=== PATIENT | female | born 1985 | race Caucasian/White ===

== ENCOUNTER → 2016-12-03 | Outpatient (CLI) | payer OTHER ==
--- NOTE | 2016-12-03 12:46 | US ---
EXAMINATION TYPE: US OB >= 14 wk fetus DATE OF EXAM: 12/03/2016 12:19 PM COMPARISON: NONE HISTORY: uncertain dates, no previous scan TECHNIQUE: Transabdominal (TA) EXAM MEASUREMENTS: GESTATIONAL AGE / DATING Physician Established: not established yet Dates by LMP: (18 weeks/5 days) EDC: 05/01/2017 Dates by First Scan: no previous scan Dates by Current Scan for: (17 weeks/1 days) EDC: 05/12/2017 SURVEY IUP: Single PLACENTA: Posterior PREVIA: No previa MARIANA: 12.4 cm Normal CERVICAL LENGTH (transabdominal: norm > 3.0cm): 3.3 cm BIOMETRY PRESENTATION: Vertex LIE: Oblique BPD: 3.9 cm 17 weeks / 5 days HC: 14.0 cm 17 weeks / 2 days AC: 11.0 cm 16 weeks / 6 days FL: 2.3 cm 16 weeks / 6 days ESTIMATED WEIGHT IN GRAMS: 175 grams ESTIMATED WEIGHT IN LBS/OZS: 0 lbs. 6 oz. WEIGHT PERCENTAGE BASED ON ESTABLISHED DATE: n/a; dates not established yet (less than 3% based on p t's lmp) % HC/AC: 1.27 FL/AC: 20 HEART RATE: 155 bpm RHYTHM: Normal ANATOMY SEEN (within normal limits): * Cisterna Magna (< 1.1 cm) 0.3 cm * Nuchal Fold (< 0.6 cm) 0.2 cm * Cerebellum (varies with age) 1.7 cm Choroid Plexus (bilateral) Midline Falx Cavus Septi Pellucidi Stomach ANATOMY NOT SEEN: pt is too early to see anatomy well, plus larger habitus * Lateral Vent (< 1 cm) Four Chamber Heart Outflow tracts: LVOT/RVOT Situs Nose / Lips Diaphragm Kidneys (bilateral) Bladder Cord Insert Three Vessel Cord Longitudinal Spine Transverse Spine Arms (bilateral) Legs (bilateral) TECHNOLOGIST IMPRESSION: viable iup, no abn seen by us, . Single live intrauterine gestation is identified. heart tones are regular and measure 155 bpm w hich is within normal limits. Normal cephalad presentation to fetus is currently seen. There is no ul trasound evidence for placenta previa. Amniotic fluid index is within normal limits. biometry m easurements are within normal limits as noted above. Due to early second trimester gestation, detaile d anatomical survey is markedly suboptimal. Advise follow-up scanning in 2-3 weeks' time. IMPRESSION: As above.
== END | disposition home or self-care (01) ==
LOC: RADUSWWP 11:29
PROVIDERS: ATTEND Obstetrics & Gynecology
DX: O36.62X0 Maternal care for excessive fetal growth, second trimester, not applicable or unspecified (principal); Z3A.17 17 weeks gestation of pregnancy
CPT/HCPCS: 76805

== ENCOUNTER → 2016-12-29 | Outpatient (CLI) | payer OTHER ==
--- NOTE | 2016-12-29 11:49 | US ---
EXAMINATION TYPE: US OB anatomy transabd second trimester DATE OF EXAM: 12/29/2016 10:15 AM COMPARISON: Prior ultrasound December 03, 2016 HISTORY: Follow up from prior exam TECHNIQUE: Transabdominal (TA) pelvic ultrasound. EXAM MEASUREMENTS: GESTATIONAL AGE / DATING Physician Established: (22 weeks/3 days) EDC: 05/01/17 Dates by LMP: (22 weeks/3 days) EDC: 05/01/17 Dates by First Scan: (20 weeks/6 days) EDC: 05/12/17 Dates by Current Scan for: (21 weeks/6 days) EDC: 05/05/17 SURVEY IUP: Single PLACENTA: Posterior PREVIA: No previa MARIANA: 10.8 cm Normal CERVICAL LENGTH (transabdominal: norm > 3.0cm): 4.2 cm BIOMETRY PRESENTATION: Breech LIE: Transverse lie with head maternal RT BPD: 5.2 cm 21 weeks / 5 days HC: 19.6 cm 21 weeks / 5 days AC: 16.9 cm 21 weeks / 6 days FL: 3.7 cm 21 weeks / 6 days ESTIMATED WEIGHT IN GRAMS: 456.5 grams ESTIMATED WEIGHT IN LBS/OZS: 1 lbs. 0 oz. WEIGHT PERCENTAGE BASED ON ESTABLISHED DATE: 18.7 % HC/AC: 1.16 normal FL/AC: 21.9 normal HEART RATE: 145 bpm RHYTHM: Normal ANATOMY SEEN (within normal limits): * Lateral Vent (< 1 cm) 0.7 cm * Cisterna Magna (< 1.1 cm) 0.4 cm * Nuchal Fold (< 0.6 cm) 0.3 cm * Cerebellum (varies with age) 1.8 cm Choroid Plexus (bilateral) Midline Falx Cavus Septi Pellucidi Four Chamber Heart Outflow tracts: LVOT/RVOT Stomach Situs Nose / Lips Diaphragm Kidneys (bilateral) Bladder Cord Insert Three Vessel Cord Longitudinal Spine Transverse Spine Arms (bilateral) Legs (bilateral) MATERNAL WALL MEASUREMENT: 4.2 cm from skin to anterior uterine wall (if exam limited due to body nieto bitus). TECHNOLOGIST IMPRESSION: Single viable IUP 21wks/6days with LAKSHMI of 05/05/17. Technical limitations d ue to patient's body habitus Single live intrauterine gestation is redemonstrated. A breech presentation to fetus is currently see n. Amniotic fluid index remains within normal limits. There is no ultrasound evidence for placenta pr evia. biometry measurements are congruent and within normal limits. Detailed anatomical survey shows no suspicious abnormality during real-time scanning but was noted suboptimal due to maternal large snow dy habitus. Still images saved show poor visualization of four-chamber heart and outflow tracts as we ll as suboptimal visualization of spine on 2 views and isn't entirety and nose and lips. IMPRESSION: As above.
== END | disposition home or self-care (01) ==
LOC: RADUSWWP 09:11
PROVIDERS: ATTEND Obstetrics & Gynecology
DX: O32.1XX0 Maternal care for breech presentation, not applicable or unspecified (principal); Z3A.21 21 weeks gestation of pregnancy
CPT/HCPCS: 76811

== ENCOUNTER 2017-04-28 06:30 | Inpatient (IN) | payer OTHER ==
[2017-04-28] MEDS ORDERED: METHYLERGONOVINE 0.2 MG/ML 1 ML AMP IM PRN (06:53)
[2017-04-28] MEDS ORDERED: LIDOCAINE 1% (PF) 10 MG/ML (30 ML SDV) SQ PRN (06:53)
[2017-04-28] MEDS ORDERED: TERBUTALINE 1 MG/ML VIAL SQ PRN (06:53)
[2017-04-28] MEDS ORDERED: OXYTOCIN 10 UNIT/ML 1 ML VIAL IM PRN (06:53)
[2017-04-28] MEDS ORDERED: CARBOPROST TROMETHAMINE 250 MCG/ML 1 ML AMP IM PRN (06:53)
[2017-04-28] MEDS ORDERED: OXYTOCIN 20 UNITS/1000 ML NS 1,000 ML IV SCH (07:00)
[2017-04-28 07:22] LABS: Basophils % (A) 0 %; CH 28.2; CHCM 34.7; Eosinophils # (A) 0.1 k/uL (0-0.7); Eosinophils % (A) 1 %; HCT 34.6 % (34.0-46.0); HDW 3.12; Luc # (Auto) 0.17; Luc % (Auto) 2; Lymphocytes # (A) 2.2 k/uL (1.0-4.8); Lymphocytes % (A) 20 %; MCH 28.3 pg (25.0-35.0); MCHC 34.7 g/dL (31.0-37.0); MCV 81.5 fL (80.0-100.0); Mean Platelet Volume 6.6; Monocytes # (A) 0.7 k/uL (0-1.0); Monocytes % (A) 6 %; Neutrophils # (A) 7.7 k/uL (1.3-7.7); Neutrophils % (A) 71 %; RBC 4.25 m/uL (3.80-5.40); RDW 15.2 % (11.5-15.5); WBC 10.8 k/uL (3.8-10.6); WBC (Perox) 10.25
[2017-04-28 07:29] VITALS: BMI 44.8
[2017-04-28] MEDS: LACTATED RINGERS 1,000 ML IV SCH ×2 (07:35→09:53)
[2017-04-28] MEDS: BUTORPHANOL 1 MG/ML 1 ML VIAL IV PRN ×2 (08:34→12:39)
[2017-04-28] MEDS ORDERED: BUPIVACAINE (PF) 0.25% 30 ML VIAL ONE ×2 (10:08→13:04)
[2017-04-28] MEDS ORDERED: SODIUM CHLORIDE 0.9% 100 ML BAG ONE ×2 (10:08→13:04)
[2017-04-28] MEDS ORDERED: fentaNYL (PF) 50 MCG/ML 5 ML AMP ONE ×2 (10:08→13:04)
[2017-04-28] MEDS ORDERED: BUPIVACAINE (PF) 0.25% 25 ML, fentaNYL (PF) 200 MCG in SODIUM CHLORIDE 0.9% 71 ML EPIDURAL ONE (10:29)
[2017-04-28] MEDS ORDERED: MIDAZOLAM 2 MG/2 ML VIAL ONE (13:04)
[2017-04-28] MEDS ORDERED: ceFAZolin 1,000 MG VIAL ONE (13:04)
--- NOTE | 2017-04-28 13:04 | P.HPOB ---
History of Present Illness H&P Date: 04/28/17 Chief Complaint: The uterine at term [place] is a 31-year-old at 39 weeks 4 days gestation arise for induction of labor. She is dilated to half centimeters 60% effaced -3 station. Artificial rupture membranes was performed this morning with clear fluid noted. Her course has generally been uncomplicated. However she has been seen high risk due to the questionable possibility of IUGR. Ultrasounds have remained stable however and nonstress tests have been normal. Pertinent labs did include A+ blood type rubella was immune hepatitis B surface antigen and RPR were negative as well as groupie strep. She is aware of risks of induction and all questions are answered for her prior to proceeding with induction. Pitocin augmentation of labor was begun and she expects use epidural for analgesia. Assessment intrauterine at term. Plan expect spontaneous vaginal delivery. Past Medical History Past Medical History: No Reported History History of Any Multi-Drug Resistant Organisms: None Reported Past Surgical History: Cholecystectomy, Tonsillectomy Additional Past Surgical History / Comment(s): 2005 alva, tonstravon 1991 Past Anesthesia/Blood Transfusion Reactions: No Reported Reaction Past Psychological History: No Psychological Hx Reported Smoking Status: Never smoker Past Drug Use History: None Reported - Past Family History Father Family Medical History: Coronary Artery Disease (CAD) Medications and Allergies Home Medications Medication Instructions Recorded Confirmed Type Pnv,Calcium 72/Iron/Folic Acid 1 tab PO DAILY 04/28/17 04/28/17 History [ Plus Tablet] Allergies Allergy/AdvReac Type Severity Reaction Status Date / Time No Known Allergies Allergy Verified 04/28/17 06:52 Exam Osteopathic Statement: *. No significant issues noted on an osteopathic structural exam other than those noted in the History and Physical/Consult. - Vital Signs Vital signs: Vital Signs Temp Pulse Resp BP 04/28/17 07:25 97.1 F L 96 16 130/72 Intake and Output 04/27/17 04/28/17 04/28/17 22:59 06:59 14:59 Intake Total 14.6 Balance 14.6 Intake: Intake, IV Titration 14.6 Amount Oxytocin 20 Units/1000 ml 14.6 Ns 1,000 ml @ 1 MILLIUNIT/MIN 3 mls/hr IV .Q24H JUAN Rx#:[id number] Other: Weight 118.388 kg 118.388 kg Patient Weight 04/29/17 06:59 Weight 118.388 kg Results Result Diagrams: 04/28/17 07:00 Abnormal Lab Results - Last 24 Hours (Table) 04/28/17 Range/Units 07:00 WBC 10.8 H (3.8-10.6) k/uL
--- NOTE | 2017-04-28 13:07 | P.PROBDLV ---
Vaginal Delivery Note - . Vaginal Delivery Note: She progressed complete and pushing with spontaneous vaginal delivery of a viable female over an intact perineum. Falling deliver the head interim posterior shoulders were easily delivered with gentle downward upper traction. Once this was finished mouth nares were bulb suctioned and baby was placed on mother's abdomen where the umbilical cord was allowed to pulsate for 30 seconds prior to clamping and cutting. Once clamped and cut and nursery personnel was present to assume care. scores were 9 and 10 at one and 5 minutes respectively and weight was 6 lbs. 11 oz. That being said placenta was unable to be delivered during this process. Placenta remained firmly attached to the uterine wall and despite uterine massage and some traction it would not separate. Umbilical cord did not completely fracture but was only held on by small fragment of the tissue due to what I suspect was a more velamentous insertion point. Main expiration was attempted but I was unable to separate the into that was located in the fundus. We are moving forward with manual exploration under anesthetics that she may tolerate this much better and we can verify complete removal of uterine products. I would be very concerned should we had continued to use traction that she was at high-risk for uterine inversion due to location of insertion see separate dictation. Minimal bleeding is noted however. Pitocin is running as well.
--- NOTE | 2017-04-28 13:20 | P.OP ---
Date of Procedure: 04/28/17 Preoperative Diagnosis: retained placenta Postoperative Diagnosis: same Procedure(s) Performed: Exploration and removal of same Implants: Anesthesia: epidural Surgeon: Darian Vides Estimated Blood Loss (ml): 100 Pathology: other (placenta) Disposition: floor Indications for Procedure: Operative Findings: Fundally attached placenta questionable extra lobe Description of Procedure: [place] was taken to the operating suite where epidural anesthetic was found be adequate. She was prepped and draped in normal sterile fashion and placed in dorsal lithotomy position. Essentially manual expiration of the uterus was done identifying the fundal attachment and with blunt dissection the placenta from the uterine wall. Once placenta was fully we did due to morbid exams to verify removal of all of the placental material. Following the procedure there is no bleeding noted and her uterine fundus went from approximately 3839 cm down to her umbilicus. It is now firm and we'll continue very close observation with Pitocin and provide IV antibiotic as a precaution. In from surgery to her recovery room in stable condition.
[2017-04-28] MEDS ORDERED: diphenhydrAMINE 50 MG/ML 1 ML VIAL IVP PRN ×2 (13:22)
[2017-04-28] MEDS ORDERED: SIMETHICONE 80 MG CHEWABLE PO PRN (13:22)
[2017-04-28] MEDS ORDERED: Acetaminophen-Codeine 300-30mg TAB PO PRN (13:22)
[2017-04-28] MEDS ORDERED: diphenhydrAMINE 50 MG CAP PO PRN (13:22)
[2017-04-28] MEDS ORDERED: HYDROCORTISONE 2.5% RECTAL CREAM 30 GM TUBE RECTAL PRN (13:22)
[2017-04-28] MEDS ORDERED: LANOLIN CREAM 5 GM TUBE TOPICAL PRN (13:22)
[2017-04-28] MEDS ORDERED: ACETAMINOPHEN TAB 325 MG TAB PO PRN (13:22)
[2017-04-28] MEDS ORDERED: diphenhydrAMINE 25 MG CAP PO PRN (13:22)
[2017-04-28] MEDS ORDERED: WITCH HAZEL 1 EACH MED..PAD TOPICAL PRN (13:22)
[2017-04-28] MEDS ORDERED: BENZOCAINE/MENTHOL SPRAY 1 GM/SPRAY AEROSOL TOPICAL PRN (13:22)
[2017-04-28] MEDS ORDERED: ZOLPIDEM 5 MG TAB PO PRN (13:22)
[2017-04-28] MEDS: IBUPROFEN 600 MG TAB PO PRN ×2 (14:58→20:04)
[2017-04-28] MEDS: Acetaminophen-Codeine 300-30mg TAB PO PRN ×2 (17:32→21:18)
[2017-04-28] MEDS: SENNOSIDES-DOCUSATE SODIUM 1 EACH TAB PO SCH (20:02)
[2017-04-28] MEDS: ceFAZolin 2 GM in SODIUM CHLORIDE 0.9% 100 ML IVPB SCH (20:18)
[2017-04-29] MEDS: Acetaminophen-Codeine 300-30mg TAB PO PRN ×3 (01:58→13:44)
[2017-04-29] MEDS: ceFAZolin 2 GM in SODIUM CHLORIDE 0.9% 100 ML IVPB SCH ×2 (04:00→09:18)
[2017-04-29] MEDS: IBUPROFEN 600 MG TAB PO PRN ×2 (04:13→11:34)
--- NOTE | 2017-04-29 07:33 | P.DS ---
Providers Date of admission: 04/28/17 06:36 Expected date of discharge: 04/29/17 Attending physician: Darian Vides Primary care physician: Stated None Hospital Course: [place] section doing very well this morning. She is involuting, voiding, and she is tolerating her diet. Other than uterine cramping which I would fully expect day 1 she voices no complaints. Lochia is reported be very light. Vital signs are stable and she is afebrile. Heart regular, lungs clear , extremities without pain. Uterus is firm below the umbilicus and again lochia is light. She requests discharged home today. Prescription for Motrin and Tylenol No. 3 provided provided. She is aware of discharge instructions and discharge instruction she has also been provided. Should she have any lightheadedness, dizziness, heavy bleeding, or other signs or symptoms that are concerning she will notify me immediately. Otherwise she is stable for discharge this time and will have her follow up with me in 6 weeks. [place] day 1. Plan discharged home Patient Condition at Discharge: Good Plan - Discharge Summary New Discharge Prescriptions: New Acetaminophen-Codeine 300-30mg [Tylenol #3] 1 tab PO Q4H PRN #30 tablet PRN Reason: Pain Ibuprofen [Motrin] 600 mg PO Q6HR PRN #30 tab PRN Reason: Pain No Action Pnv,Calcium 72/Iron/Folic Acid [ Plus Tablet] 1 tab PO DAILY Discharge Medication List Pnv,Calcium 72/Iron/Folic Acid [ Plus Tablet] 1 tab PO DAILY 04/28/17 [ History] Acetaminophen-Codeine 300-30mg [Tylenol #3] 1 tab PO Q4H PRN #30 tablet [Rx] Ibuprofen [Motrin] 600 mg PO Q6HR PRN #30 tab 04/29/17 [Rx] Follow up Appointment(s)/Referral(s): Darian Vides DO [Doctor of Osteopathic Medicine] - 6 Weeks Activity/Diet/Wound Care/Special Instructions: He lifting, limit stairs and driving and pelvic rest. If any high temperatures , heavy bleeding, or severe pain she is aware to notify our office immediately Discharge Disposition: HOME SELF-CARE
[2017-04-29] MEDS: SENNOSIDES-DOCUSATE SODIUM 1 EACH TAB PO SCH (08:14)
[2017-04-29 08:48] VITALS: BP 95/40; PULSE 84; RESP 20; TEMP 97.5
== END 2017-04-29 14:00 | disposition home or self-care (01) | DRG 767 ==
LOC: 4FBP 06:36
PROVIDERS: ADMIT Obstetrics & Gynecology; ATTEND Obstetrics & Gynecology
PROC: 10E0XZZ Delivery of Products of Conception, External Approach (ICD-10-PCS; principal; 2017-04-28 13:00)
PROC: 3E033VJ Introduction of Other Hormone into Peripheral Vein, Percutaneous Approach (ICD-10-PCS; principal; 2017-04-28 13:00)
PROC: 10D17ZZ Extraction of Products of Conception, Retained, Via Natural or Artificial Opening (ICD-10-PCS; principal; 2017-04-28 13:00)
PROC: 10907ZC Drainage of Amniotic Fluid, Therapeutic from Products of Conception, Via Natural or Artificial Opening (ICD-10-PCS; principal; 2017-04-28 13:00)
DX: O73.0 Retained placenta without hemorrhage (principal); Z37.0 Single live birth; Z3A.39 39 weeks gestation of pregnancy
CPT/HCPCS: 85025; 88307

== ENCOUNTER → 2018-02-10 | Outpatient (CLI) | payer OTHER ==
[2018-02-10 15:19] LABS: HCT 35.4 % (34.0-46.0); HGB 12.5 gm/dL (11.4-16.0); MCH 28.5 pg (25.0-35.0); MCHC 35.2 g/dL (31.0-37.0); MCV 80.8 fL (80.0-100.0); Mean Platelet Volume 6.5; Platelet Count 347 k/uL (150-450); RBC 4.39 m/uL (3.80-5.40); RDW 13.1 % (11.5-15.5); WBC 8.6 k/uL (3.8-10.6)
[2018-02-10 15:34] LABS: Glucose 121 mg/dL (74-99)
--- NOTE | 2018-02-10 21:42 | US ---
EXAMINATION TYPE: US OB >= 14 wk fetus DATE OF EXAM: 02/10/2018 COMPARISON: None CLINICAL HISTORY: 32-year-old female Z36 Confirm Date Dates/Viability. TECHNIQUE: Transabdominal (TA) FINDINGS: GESTATIONAL AGE / DATING Dates by LMP: (18 weeks/0 days) EDC: 07/14/2018 Dates by Current Scan: (14 weeks/6 days) EDC: 08/05/2018 SURVEY IUP: Single PLACENTA: Anterior/Fundal PREVIA: No Previa MARIANA: 11.1 cm Normal CERVICAL LENGTH (transabdominal: norm > 3.0cm): 4.1 cm BIOMETRY PRESENTATION: Variable LIE: Transverse with head maternal Right BPD: 2.8 cm 15 weeks / 0 days HC: 10.6 cm 15 weeks / 0 days AC: 8.7 cm 15 weeks / 0 days FL: 1.5 cm 14 weeks / 3 days ESTIMATED WEIGHT IN GRAMS: 105.4 grams ESTIMATED WEIGHT IN LBS/OZ: 0 lbs. 4 oz. HC/AC: 1.2 Normal FL/AC: 17.4 HEART RATE: 151 bpm RHYTHM: Normal Centrifugal Casting Machine Operator note: Single live IUP measuring 14 weeks 6 days, not corresponding with LMP dates. IMPRESSION: 1. Single live intrauterine with estimated gestational age of 18 weeks 0 days by LMP. [facility] is frankly discordant and smaller (14 weeks 6 days) placing the gestation at < 3rd percentile for weight. Correlate as to accuracy of recall of LMP. Follow-up for appropriate inter sharri growth as clinically indicated. 2. Complete survey recommended between 18 and 20 weeks.
== END | disposition home or self-care (01) ==
LOC: RADUSWWP 13:45
PROVIDERS: ATTEND Obstetrics & Gynecology
DX: Z34.82 Encounter for supervision of other normal pregnancy, second trimester (principal); Z3A.14 14 weeks gestation of pregnancy
CPT/HCPCS: 36415; 76805; 82565; 82947; 85027; 86762; 86780; 86850; 86900; 86901; 87340

== ENCOUNTER → 2018-06-11 | Outpatient (CLI) | payer OTHER ==
--- NOTE | 2018-06-11 18:32 | US ---
EXAMINATION TYPE: US OB anatomy transabd DATE OF EXAM: 06/11/2018 COMPARISON: US HISTORY: O36.63X0 Large for Dates TECHNIQUE: Transabdominal (TA) EXAM MEASUREMENTS: GESTATIONAL AGE / DATING Physician Established: (32 weeks/1 days) EDC: 08/05/2018 Dates by LMP: unknown Dates by First Scan: (32 weeks/1 days) EDC: 08/05/2018 Dates by Current Scan for: (32 weeks/5 days) EDC: 08/01/2018 SURVEY IUP: Single PLACENTA: Anterior PREVIA: No previa MARIANA: 12.0 cm Normal CERVICAL LENGTH (transabdominal: norm > 3.0cm): 4.2 cm BIOMETRY PRESENTATION: Vertex BPD: 7.8 cm 31 weeks / 3 days HC: 29.4 cm 32 weeks / 4 days AC: 29.2 cm 33 weeks / 2 days FL: 6.4 cm 33 weeks / 1 days ESTIMATED WEIGHT IN GRAMS: 2075 grams ESTIMATED WEIGHT IN LBS/OZ: 4 lbs. 9 oz. WEIGHT PERCENTAGE BASED ON ESTABLISHED DATE: 64 % HC/AC: 1.0 Normal FL/AC: 22% Normal HEART RATE: 155 bpm RHYTHM: Normal ANATOMY SEEN (within normal limits): * Cisterna Magna (< 1.1 cm) cm * Cerebellum (varies with age) cm Midline Falx Four Chamber Heart Outflow tracts: LVOT/RVOT Stomach Situs Nose / Lips Diaphragm Kidneys (bilateral) Bladder Three Vessel Cord Longitudinal Spine Transverse Spine ANATOMY NOT SEEN: * Lateral Vent (< 1 cm) cm * Nuchal Fold (< 0.6 cm) cm Choroid Plexus (bilateral) Cavus Septi Pellucidi Cord Insert Arms (bilateral) Legs (bilateral) limited anatomy scan due to advanced gestational age and crowding. growth according to dates. IMPRESSION: There is satisfactory growth compared to February 10, 2018
== END | disposition home or self-care (01) ==
LOC: RADUSWWP 16:30
PROVIDERS: ATTEND Obstetrics & Gynecology
DX: O36.63X0 Maternal care for excessive fetal growth, third trimester, not applicable or unspecified (principal); Z3A.32 32 weeks gestation of pregnancy
CPT/HCPCS: 76811

== ENCOUNTER 2018-08-05 06:15 | Inpatient (IN) | payer OTHER ==
--- NOTE | 2018-08-04 17:39 | P.HPOB ---
History of Present Illness H&P Date: 08/04/18 Chief Complaint: Intrauterine at term: Induction of labor [place] is a 32-year-old at 40 weeks gestation who arrives for induction of labor. Her Precis course on speaking has been unremarkable and she is feeling well at this time. She's been followed very closely throughout the . She does have a history of large babies with her first baby delivering at 8 lbs. 8 oz. Risks and benefits of a induction of labor discussed with patient in detail and all questions were answered for her prior to proceeding to induction. It is also noted she had a retained placenta during her second delivery which we'll try and pace special close attention to to try and avoid that from happening with this . Assessment intrauterine term. Plan induction of labor with expected vaginal delivery Past Medical History Past Medical History: No Reported History History of Any Multi-Drug Resistant Organisms: None Reported Past Surgical History: Cholecystectomy, Tonsillectomy Additional Past Surgical History / Comment(s): 2005 [place] 1991 Past Anesthesia/Blood Transfusion Reactions: No Reported Reaction Past Psychological History: No Psychological Hx Reported Smoking Status: Never smoker Past Drug Use History: None Reported - Past Family History Father Family Medical History: Coronary Artery Disease (CAD) Medications and Allergies Home Medications Medication Instructions Recorded Confirmed Type Pnv,Calcium 72/Iron/Folic Acid 1 tab PO DAILY 04/28/17 04/28/17 History [ Plus Tablet] Acetaminophen-Codeine 300-30mg 1 tab PO Q4H PRN #30 tablet 04/29/17 Rx [Tylenol #3] Ibuprofen [Motrin] 600 mg PO Q6HR PRN #30 tab 04/29/17 Rx Allergies Allergy/AdvReac Type Severity Reaction Status Date / Time No Known Allergies Allergy Verified 04/28/17 06:52 Exam Osteopathic Statement: *. No significant issues noted on an osteopathic structural exam other than those noted in the History and Physical/Consult. - OBG Physical Exam Breast: both: normal (no masses) Abdomen: bowel sounds normal, no diffuse tenderness, no bruit present, no guarding noted, no hepatomegaly, no splenomegaly, no mass Vulva: both: normal Vagina: normal moisture, no discharge Cervix: no lesion, no discharge Uterus: normal size, normal contour Adnexa: both: normal Anus/Rectum: normal perianal skin, no rectal mass, no hemorrhoids, heme negative
[2018-08-05] MEDS ORDERED: OXYTOCIN 20 UNITS/1000 ML NS 1,000 ML IV SCH (06:33)
[2018-08-05] MEDS ORDERED: METHYLERGONOVINE 0.2 MG/ML 1 ML AMP IM PRN (06:33)
[2018-08-05] MEDS ORDERED: LIDOCAINE 0.5% (PF) 5 MG/ML (50 ML SDV) SQ PRN (06:33)
[2018-08-05] MEDS ORDERED: TERBUTALINE 1 MG/ML VIAL SQ PRN (06:33)
[2018-08-05] MEDS ORDERED: CARBOPROST TROMETHAMINE 250 MCG/ML 1 ML AMP IM PRN (06:33)
[2018-08-05] MEDS ORDERED: OXYTOCIN 10 UNIT/ML 1 ML VIAL IM PRN (06:33)
[2018-08-05 06:46] VITALS: BMI 46.3
[2018-08-05] MEDS: LACTATED RINGERS 1,000 ML IV SCH ×2 (06:50→23:39)
[2018-08-05 06:59] LABS: Basophils % (A) 0 %; Eosinophils # (A) 0.1 k/uL (0-0.7); Eosinophils % (A) 1 %; HCT 35.1 % (34.0-46.0); HGB 11.9 gm/dL (11.4-16.0); Lymphocytes # (A) 1.9 k/uL (1.0-4.8); Lymphocytes % (A) 24 %; MCH 27.7 pg (25.0-35.0); MCV 81.4 fL (80.0-100.0); Mean Platelet Volume 6.4; Monocytes # (A) 0.5 k/uL (0-1.0); Monocytes % (A) 6 %; Neutrophils # (A) 5.5 k/uL (1.3-7.7); Neutrophils % (A) 68 %; Platelet Count 352 k/uL (150-450); RBC 4.31 m/uL (3.80-5.40); WBC 8.2 k/uL (3.8-10.6)
[2018-08-05] MEDS ORDERED: fentaNYL (PF) 50 MCG/ML 5 ML AMP ONE (09:40)
[2018-08-05] MEDS ORDERED: ROPIVACAINE 5MG/ML 20ML VIAL ONE (09:40)
[2018-08-05] MEDS ORDERED: SODIUM CHLORIDE 0.9% 100 ML BAG ONE (09:40)
[2018-08-05] MEDS ORDERED: BENZOCAINE/MENTHOL SPRAY 1 GM/SPRAY AEROSOL TOPICAL PRN (13:37)
[2018-08-05] MEDS ORDERED: LANOLIN CREAM 5 GM TUBE TOPICAL PRN (13:37)
[2018-08-05] MEDS ORDERED: ZOLPIDEM 5 MG TAB PO PRN (13:37)
[2018-08-05] MEDS ORDERED: ACETAMINOPHEN TAB 325 MG TAB PO PRN (13:37)
[2018-08-05] MEDS ORDERED: MEASLES-MUMPS-RUBELLA VACC/PF 12,500 UNIT/0.5 ML VIAL SQ ONE (13:37)
[2018-08-05] MEDS ORDERED: WITCH HAZEL 1 EACH MED..PAD TOPICAL PRN (13:37)
[2018-08-05] MEDS ORDERED: SIMETHICONE 80 MG CHEWABLE PO PRN (13:37)
[2018-08-05] MEDS ORDERED: HYDROCORTISONE 2.5% RECTAL CREAM 30 GM TUBE RECTAL PRN (13:37)
[2018-08-05] MEDS ORDERED: diphenhydrAMINE 25 MG CAP PO PRN (13:37)
[2018-08-05] MEDS ORDERED: diphenhydrAMINE 50 MG CAP PO PRN (13:37)
[2018-08-05] MEDS ORDERED: diphenhydrAMINE 50 MG/ML 1 ML VIAL IVP PRN ×2 (13:37)
--- NOTE | 2018-08-05 13:38 | P.PROBDLV ---
Vaginal Delivery Note - . Vaginal Delivery Note: [place] progressed complete and pushed with spontaneous vaginal delivery of a viable female over an intact perineum. Following delivery of the head from left occiput anterior position anterior posterior shoulders were delivered with sideward traction and the remainder the baby followed. Mouth nares were then bulb suctioned and baby was placed on mother's abdomen where the umbilical cord was allowed to pulsate for 30 seconds prior to clamping and cutting. Nursery personnel was present to assume care. Placenta was then delivered intact and Pitocin was added to the IV. scores and weight are pending. However both mother and baby appear stable following delivery.
[2018-08-05] MEDS: IBUPROFEN 600 MG TAB PO PRN ×2 (15:48→21:55)
[2018-08-05] MEDS: SENNOSIDES-DOCUSATE SODIUM 1 EACH TAB PO SCH (20:46)
[2018-08-05 23:13] VITALS: TEMP 98.5
[2018-08-06] MEDS: HYDROcodone/APAP 7.5-325MG 1 EACH TAB PO PRN ×3 (00:17→13:32)
[2018-08-06] MEDS: IBUPROFEN 600 MG TAB PO PRN ×2 (04:25→11:20)
[2018-08-06 07:42] VITALS: BP 92/64; PULSE 78; RESP 16
[2018-08-06] MEDS: SENNOSIDES-DOCUSATE SODIUM 1 EACH TAB PO SCH (07:48)
[2018-08-06] MEDS ORDERED: INFLUENZA VACCINE (6 MOS+) 60 MCG/0.5 ML SYRINGE IM ONE (07:50)
--- NOTE | 2018-08-06 08:11 | P.DS ---
Providers Date of admission: 08/05/18 06:15 Expected date of discharge: 08/06/18 Attending physician: Darian Vides Primary care physician: Darian Vides Hospital Course: Overall [place] is doing well day 1. She is ambulating, voiding and she is tolerating her diet. She voices the only complaint of abdominal cramping. She relates this is a severe pain on occasion up to 9 out of 10. However, since putting running her chronic pain reliever the pain has subsided significantly and she is requesting discharge home. I did advise that she should likely stay or could certainly stay and we can continue to observe her pain since she went home she will have to go through the emergency room if the pain came back in was that severe. She still requests discharged home. Discharge instructions thoroughly reviewed and all questions are answered for her prior to proceeding to the operating room. On physical exam vital signs are stable and afebrile. Heart regular, lungs clear, extremities are without pain. Abdomen is soft uterus is firm and lochia is reported to be light. Assessment day 1. Plan discharged home follow up with me in 6 weeks. Patient Condition at Discharge: Good Plan - Discharge Summary New Discharge Prescriptions: New HYDROcodone/APAP 5-325MG [[place] 5-325] 1 tab PO Q4HR PRN #30 tab PRN Reason: Pain Ibuprofen [Motrin] 600 mg PO Q6HR PRN #30 tab PRN Reason: Pain Discharge Medication List HYDROcodone/APAP 5-325MG [[place] 5-325] 1 tab PO Q4HR PRN #30 tab 08/06/18 [Rx] Ibuprofen [Motrin] 600 mg PO Q6HR PRN #30 tab 08/06/18 [Rx] Follow up Appointment(s)/Referral(s): Darian Vides DO [Primary Care Provider] - 6 Weeks Activity/Diet/Wound Care/Special Instructions: No heavy lifting, limit stairs and driving, and pelvic rest. If any high temperatures, heavy bleeding, or severe pain call my office Discharge Disposition: HOME SELF-CARE
[2018-08-06] MEDS ORDERED: DIPH,PERTUS(ACELL)TETVAC-LF 0.5 ML VIAL IM ONE (08:30)
== END 2018-08-06 14:10 | disposition home or self-care (01) | DRG 807 ==
LOC: 4FBP 06:15
PROVIDERS: ADMIT Obstetrics & Gynecology; ATTEND Obstetrics & Gynecology
PROC: 10E0XZZ Delivery of Products of Conception, External Approach (ICD-10-PCS; principal; 2018-08-05)
PROC: 10907ZC Drainage of Amniotic Fluid, Therapeutic from Products of Conception, Via Natural or Artificial Opening (ICD-10-PCS; 2018-08-05)
PROC: 3E033VJ Introduction of Other Hormone into Peripheral Vein, Percutaneous Approach (ICD-10-PCS; 2018-08-05)
PROC: 00HU33Z Insertion of Infusion Device into Spinal Canal, Percutaneous Approach (ICD-10-PCS; 2018-08-05)
PROC: 3E0R3NZ Introduction of Analgesics, Hypnotics, Sedatives into Spinal Canal, Percutaneous Approach (ICD-10-PCS; 2018-08-05)
DX: O48.0 Post-term pregnancy (principal); Z37.0 Single live birth; Z3A.40 40 weeks gestation of pregnancy; Z90.49 Acquired absence of other specified parts of digestive tract
CPT/HCPCS: 85025; 86850; 86900; 86901; 90686; 90715